=== PATIENT | female | born 1995 | race Caucasian/White ===

== ENCOUNTER 2019-05-23 16:44 | Emergency (ER) | payer SELFPAY ==
[~2019-05-23] VITALS: Ht 167.6 cm; Wt 149.7 kg
[~2019-05-23 16:44] MED LIST: MACROBID100 M1 PO; MEDROL DOSEPAK4 MG PO; MOTRIN400 MG PO; OMNICEF250 MG/5 M PO; PYRIDIUM200 M1 PO; TESSALON PERLE100 M1 PO; ZITHROMAX250 MG PO
[2019-05-23 16:46] VITALS: BP 149/98
[2019-05-23 17:34] LABS: BASO % 0.4 % (0.0-1.0); EOS # 0.3 10*3/uL (0.0-0.4); EOS % 3.1 % (1.0-4.0); HEMATOCRIT 41.3 % (37.0-47.0); HEMOGLOBIN 13.5 g/dl (12.0-16.0); LYMPH # 1.6 10*3/uL (1.3-4.4); MEAN CELL VOLUME 87.5 fl (81.0-99.0); MEAN CORPUSCULAR HGB 28.6 pg (27.0-31.0); MEAN CORPUSCULAR HGB CONC 32.7 g/dl (33.0-37.0); MEAN PLATELET VOLUME 11.2 fl (9.6-12.3); MONO # 0.8 10*3/uL (0.1-1.0); MONO % 7.3 % (3.0-9.0); NEUT # 7.9 10*3/uL (2.3-7.9); NEUT % 73.8 % (47.0-73.0); PLATELET COUNT AUTOMATED 360 10*3/uL (130-400); RED BLOOD COUNT 4.72 10*6/uL (4.10-5.10); RED CELL DISTRI WIDTH 14.6 % (0-14.5); WHITE BLOOD COUNT 10.7 10*3/uL (4.8-10.8)
[2019-05-23 17:50] LABS: BUN 6 mg/dl (7-24); CHLORIDE 104 mmol/L (98-107); CREATININE 0.93 mg/dL (0.55-1.02); POTASSIUM 3.5 mmol/L (3.5-5.1); SODIUM 138 mmol/L (136-145)
[2019-05-23] MEDS ORDERED: ZITHROMAX250 MG PO (19:58)
[2019-05-23] MEDS ORDERED: PROAIR HFA8.5 GM INH (19:59)
[2019-05-23] MEDS ORDERED: PREDNISONE50 MG PO (19:59)
== END 2019-05-23 20:07 | disposition home or self-care (01) ==
LOC: ED 16:44
PROVIDERS: Nurse Practitioner
DX: J45.901 Unspecified asthma with (acute) exacerbation (principal); E66.01 Morbid (severe) obesity due to excess calories; F17.200 Nicotine dependence, unspecified, uncomplicated; Z87.01 Personal history of pneumonia (recurrent); Z88.1 Allergy status to other antibiotic agents